=== PATIENT | female | born 1955 | race Caucasian/White ===

== ENCOUNTER 2017-07-23 22:07 | Inpatient (IN) | payer BC ==
[~2017-07-23] VITALS: Ht 170.2 cm; Wt 66.0 kg
[2017-07-23 23:26] LABS: BASOPHILS # (AUTO) 0.03 x10^3/uL (0-0.1); BASOPHILS % (AUTO) 0 % (0-1); EOSINOPHILS # (AUTO) 0.21 x10^3/uL (0-0.4); EOSINOPHILS % (AUTO) 3 % (1-7); LYMPHOCYTES # (AUTO) 1.43 x10^3/uL (1-3.4); LYMPHOCYTES % (AUTO) 20 % (22-44); MD NO; MEAN CORPUSCULAR HEMOGLOBIN 32.1 pg (27.0-34.8); MEAN CORPUSCULAR HGB CONC 33.5 g/dL (32.4-35.8); MEAN CORPUSCULAR VOLUME 95.8 fL (80-100); MONOCYTES # (AUTO) 0.49 x10^3/uL (0.2-0.8); MONOCYTES % (AUTO) 7 % (2-9); NEUTROPHILS # (AUTO) 5.13 x10^3/uL (1.8-6.8); NEUTROPHILS % (AUTO) 70 % (42-75); PLATELET COUNT 309 x10^3/uL (130-400); RED BLOOD COUNT 4.28 x10^6/uL (3.82-5.3); RED CELL DISTRIBUTION WIDTH 13.2 % (9.6-15.2)
[2017-07-23] MEDS ORDERED: ASPIRIN 81 MG TABLET CHEW PO ONE (23:30)
[2017-07-23 23:38] LABS: ALANINE AMINOTRANSFERASE 19 U/L (12-78); ALBUMIN 4.2 g/dL (3.4-5.0); ANION GAP 9 mmol/L (5-15); CALCIUM 8.6 mg/dL (8.5-10.1); CHLORIDE 106 mmol/L (98-107); CREATININE 0.74 mg/dL (0.55-1.02)
[2017-07-23] MEDS ORDERED: ASPIRIN 81 MG TABLET CHEW ONE (23:39)
[2017-07-23 23:42] LABS: ALKALINE PHOSPHATASE 69 U/L (45-117); BILIRUBIN,TOTAL 0.4 mg/dL (0.2-1.0); TOTAL PROTEIN 7.6 g/dL (6.4-8.2); TROPONIN I < 0.015 ng/mL (0.000-0.045)
[2017-07-24] MEDS ORDERED: NITROGLYCERIN SINGLE TAB 0.4 MG SL PRN
[2017-07-24] MEDS ORDERED: NITROGLYCERIN SINGLE TAB 0.4 MG SL ONE (00:01)
[2017-07-24] MEDS ORDERED: SERT50TA PO (00:20)
[2017-07-24] MEDS ORDERED: LOVA20TA2 PO (00:20)
[2017-07-24] MEDS ORDERED: ACETAMINOPHEN 325 MG TABLET PO PRN (00:30)
[2017-07-24] MEDS ORDERED: ENOXAPARIN 40 MG/0.4 ML SQ SCH (00:30)
[2017-07-24] MEDS ORDERED: NITROGLYCERIN 0.4 MG BOTTLE (25 TABS) SL PRN (00:30)
[2017-07-24] MEDS ORDERED: ENALAPRILAT 1.25 MG/ML, 2ML IVPush PRN (00:30)
[2017-07-24] MEDS ORDERED: DOCUSATE 100 MG CAPSULE PO PRN (00:30)
[2017-07-24] MEDS ORDERED: TEMAZEPAM 15 MG CAPSULE PO PRN (00:30)
[2017-07-24] MEDS ORDERED: ONDANSETRON ODT 4 MG PO PRN (00:30)
[2017-07-24 00:43] LABS: HEMOGLOBIN A1C 5.4 % (4.2-6.3)
[2017-07-24 00:46] VITALS: BP 146/80
[2017-07-24 00:47] VITALS: BP 155/87
[2017-07-24 05:41] LABS: TROPONIN I < 0.015 ng/mL (0.000-0.045)
[2017-07-24 07:34] VITALS: BP 134/85
[2017-07-24] MEDS ORDERED: REGADENOSON 0.4 MG/5 ML SYRINGE ONE (08:14)
== END 2017-07-24 13:26 | disposition home or self-care (01) | DRG 311 ==
LOC: ED 23:58 → EDIP 23:59 → 5SO 07-24 00:49
PROVIDERS: ADMIT Internal Medicine; ATTEND Internal Medicine
DX: I24.9 Acute ischemic heart disease, unspecified (principal); F33.0 Major depressive disorder, recurrent, mild; E78.5 Hyperlipidemia, unspecified; I25.2 Old myocardial infarction; K21.9 Gastro-esophageal reflux disease without esophagitis; Z79.899 Other long term (current) drug therapy; Z82.49 Family history of ischemic heart disease and other diseases of the circulatory system; Z90.710 Acquired absence of both cervix and uterus; Z95.1 Presence of aortocoronary bypass graft
CPT/HCPCS: 36415; 71046; 78452; 80053; 83036; 84484; 85025; 93005; 93017; 99285; J2785; A9502; C9898